=== PATIENT | male | born 1970 | race Caucasian/White ===

== ENCOUNTER 2021-04-13 21:15 | Inpatient (IN) | payer SELFPAY ==
--- NOTE | 2021-04-13 21:35 | EDM.PDOC ---
ED HPI GENERAL MEDICAL PROBLEM - General Stated Complaint: HEART PAIN, MAYBE HEART ATTACK Time Seen by Provider: 04/13/21 21:15 Source of Information: Reports: Patient History Limitations: Reports: No Limitations - History of Present Illness INITIAL COMMENTS - FREE TEXT/NARRATIVE: ED with anterior chest pain x 1 hour [employer], started when sitting watching TV, Remote hx 5 vessel bypass. On no current medications, does not follow with PCP Tried some packet powder of pain reliever [employer] but does not know mg or if acetaminophen or aspirin type product. Intermittent heartburn uses OTC pepcid or tums. No nausea vomiting or breathing difficulty. Rates pain 4/10 radiates down both arms to elbows. Had been on cholesterol and blood pressure medications after bypass surgery but couldn't afford them so quit. , Continues tobacco use 1/4 pack per day. Chest Pain Score (Numeric/FACES): 4 - Related Data Allergies Allergy/AdvReac Type Severity Reaction Status Date / Time No Known Allergies Allergy Verified 04/13/21 22:04 Home Meds: Home Meds . [No Known Home Meds] 02/11/18 [History] Past Medical History HEENT History: Reports: None Cardiovascular History: Reports: Hypertension, [place] Respiratory History: Reports: None Gastrointestinal History: Reports: None Genitourinary History: Reports: Prostate Disorder Neurological History: Reports: Migraines Other Neuro History: trigeminal myalgia Psychiatric History: Reports: None Endocrine/Metabolic History: Reports: Diabetes, Type II Dermatologic History: Reports: None - Infectious Disease History Infectious Disease History: Reports: Chicken Pox, Influenza - Past Surgical History Cardiovascular Surgical History: Reports: Coronary Artery Bypass Musculoskeletal Surgical History: Reports: Arthroscopic Knee, Shoulder Surgery Social & Family History - Family History HEENT: Reports: Impaired Vision Cardiac: Reports: High Cholesterol, Hypertension Respiratory: Reports: Asthma OBGYN: Reports: Endocrine/Metabolic: Reports: Diabetes, type II Oncologic: Reports: Colon, Lung - Caffeine Use Caffeine Use: Reports: Coffee Caffeine Use Comment: quit energy drinks after his heart problem ED ROS GENERAL - Review of Systems Review Of Systems: Comprehensive ROS is negative, except as noted in HPI. ED EXAM, GENERAL - Physical Exam Exam: See Below Exam Limited By: No Limitations General Appearance: Alert, Anxious, Mild Distress Eye Exam: Bilateral Eye: EOMI Ears: Normal External Exam Nose: Normal Inspection Throat/Mouth: Normal Inspection Head: Atraumatic, Normocephalic Neck: Normal Inspection Respiratory/Chest: No Respiratory Distress, Lungs Clear, Normal Breath Sounds, Chest Non-Tender Cardiovascular: Normal Peripheral Pulses, Regular Rate, Rhythm GI/Abdominal: Normal Bowel Sounds, Soft Extremities: Normal Inspection, Normal Range of Motion. No: Pedal Edema Neurological: Alert, Oriented, Normal Cognition Psychiatric: Normal Affect, Anxious Skin Exam: Warm, Dry, Intact, Normal Color #1 Interpretation EKG Date: 04/13/21 Time: 21:22 Rhythm: Other (sinus tachycardia) Rate (Beats/Min): 113 P-Wave: Present QRS: Wide ST-T: Depressed (diffuse leads) Comparison: No Change (PRIOR EKG 2014) #2 Interpretation EKG Date: 04/13/21 Time: 23:29 Rhythm: NSR Rate (Beats/Min): 90 Comparison: Change From Previous EKG EKG Interpretation Comments: improvement in ST depression, Course - Vital Signs Last Recorded V/S: Last Vital Signs Temp 98.0 F 04/14/21 12:00 Pulse 89 04/14/21 12:00 Resp 20 04/14/21 12:00 BP 128/97 H 04/14/21 12:00 Pulse Ox 93 L 04/14/21 12:00 - Orders/Labs/Meds Labs: Laboratory Tests 04/13/21 04/13/21 04/13/21 Range/Units 21:25 21:25 21:25 WBC 13.2 H (5.0-10.0) 10^3/uL RBC 4.98 (4.6-6.2) 10^6/uL Hgb 15.5 (14.0-18.0) g/dL Hct 45.3 (40.0-54.0) % MCV 91.0 (80-100) fL MCH 31.1 (27.0-34.0) pg MCHC 34.2 (33.0-35.0) g/dL Plt Count 297 (150-450) 10^3/uL Neut % (Auto) 58.1 (42.2-75.2) % Lymph % (Auto) 32.0 (20.5-50.1) % [place] % (Auto) 6.6 (2-8) % Eos % (Auto) 2.8 (1.0-3.0) % Baso % (Auto) 0.5 (0.0-1.0) % PT 10.3 (9.0-12.0) SEC INR 1.0 (0.9-1.2) D-Dimer, Quantitative 289 (0-400) ng/mL Sodium 139 (136-145) mmol/L Potassium 3.8 (3.5-5.1) mmol/L Chloride 101 (98-107) mmol/L Carbon Dioxide 28 (21-32) mmol/L Anion Gap 13.8 H (7-13) mEq/L BUN 22 H (7-18) mg/dL Creatinine 1.54 H (0.70-1.30) mg/dL Est Cr Clr Drug Dosing TNP Estimated GFR (MDRD) 48 BUN/Creatinine Ratio 14.3 (No establ ref range) Glucose 189 H (70-99) mg/dL Calcium 9.2 (8.5-10.1) mg/dL Magnesium 2.0 (1.8-2.4) mg/dL Total Bilirubin 0.2 (0.2-1.0) mg/dL AST 18 (15-37) U/L ALT 34 (16-63) U/L Alkaline Phosphatase 98 (46-116) U/L Troponin I High Sens 62 (<=76) pg/mL B-Natriuretic Peptide 12 (0-100) pg/ml Total Protein 7.2 (6.4-8.2) g/dL Albumin 3.8 (3.4-5.0) g/dL Globulin 3.4 Albumin/Globulin Ratio 1.1 Amylase 55 (25-115) U/L Urine Color (YELLOW) Urine Appearance (CLEAR) Urine pH (5.0-9.0) Ur Specific [place] (1.005-1.030) Urine Protein (NEGATIVE) Urine Glucose (UA) (NEGATIVE) Urine Ketones (NEGATIVE) Urine Occult Blood (NEGATIVE) Urine Nitrite (NEGATIVE) Urine Bilirubin (NEGATIVE) Urine Urobilinogen (0.2-1.0) mg/dL Ur Leukocyte Esterase (NEGATIVE) Urine RBC (0-5) /HPF Urine WBC (0-5/HPF) /HPF Ur Epithelial Cells (NOT SEEN) /HPF Urine Bacteria (0-FEW/HPF) /HPF 04/13/21 04/13/21 Range/Units 23:06 23:30 WBC (5.0-10.0) 10^3/uL RBC (4.6-6.2) 10^6/uL Hgb (14.0-18.0) g/dL Hct (40.0-54.0) % MCV (80-100) fL MCH (27.0-34.0) pg MCHC (33.0-35.0) g/dL Plt Count (150-450) 10^3/uL Neut % (Auto) (42.2-75.2) % Lymph % (Auto) (20.5-50.1) % [place] % (Auto) (2-8) % Eos % (Auto) (1.0-3.0) % Baso % (Auto) (0.0-1.0) % PT (9.0-12.0) SEC INR (0.9-1.2) D-Dimer, Quantitative (0-400) ng/mL Sodium (136-145) mmol/L Potassium (3.5-5.1) mmol/L Chloride (98-107) mmol/L Carbon Dioxide (21-32) mmol/L Anion Gap (7-13) mEq/L BUN (7-18) mg/dL Creatinine (0.70-1.30) mg/dL Est Cr Clr Drug Dosing Estimated GFR (MDRD) BUN/Creatinine Ratio (No establ ref range) Glucose (70-99) mg/dL Calcium (8.5-10.1) mg/dL Magnesium (1.8-2.4) mg/dL Total Bilirubin (0.2-1.0) mg/dL AST (15-37) U/L ALT (16-63) U/L Alkaline Phosphatase (46-116) U/L Troponin I High Sens 177 H* (<=76) pg/mL B-Natriuretic Peptide (0-100) pg/ml Total Protein (6.4-8.2) g/dL Albumin (3.4-5.0) g/dL Globulin Albumin/Globulin Ratio Amylase (25-115) U/L Urine Color Yellow (YELLOW) Urine Appearance Clear (CLEAR) Urine pH 6.5 (5.0-9.0) Ur Specific [place] >= 1.030 (1.005-1.030) Urine Protein Negative (NEGATIVE) Urine Glucose (UA) Negative (NEGATIVE) Urine Ketones Trace H (NEGATIVE) Urine Occult Blood Trace-intact H (NEGATIVE) Urine Nitrite Negative (NEGATIVE) Urine Bilirubin Negative (NEGATIVE) Urine Urobilinogen 0.2 (0.2-1.0) mg/dL Ur Leukocyte Esterase Negative (NEGATIVE) Urine RBC 0-5 (0-5) /HPF Urine WBC 0-5 (0-5/HPF) /HPF Ur Epithelial Cells Many H (NOT SEEN) /HPF Urine Bacteria Many H (0-FEW/HPF) /HPF Meds: Medications Discontinued Medications Generic Name Dose Route Start Last Admin Trade Name Freq PRN Reason Stop Dose Admin Acetaminophen 650 mg 04/14/21 02:19 04/14/21 02:37 Acetaminophen 325 Mg Tab PO 650 mg Q4H PRN Administration Pain Aspirin 324 mg 04/13/21 21:18 04/13/21 21:36 Aspirin 81 Mg Tab.Chew PO 04/13/21 21:19 324 mg ONETIME ONE Administration Atorvastatin Calcium 80 mg 04/14/21 00:22 04/14/21 00:31 Atorvastatin 20 Mg Tab PO 04/14/21 00:23 80 mg ONETIME ONE Administration Heparin Sodium (Porcine) 4,000 units 04/14/21 00:05 04/14/21 00:15 Heparin Sodium 5,000 Units/Ml Vial IVPUSH 04/14/21 00:06 4,000 units .BOLUS ONE Administration Heparin Sodium (Porcine) 2,000 units 04/14/21 08:07 04/14/21 08:18 Heparin Sodium 5,000 Units/Ml Vial IVPUSH 04/14/21 08:08 2,000 units .BOLUS ONE Administration Nitroglycerin/Dextrose 25 mg in 250 mls @ 6 mls/hr 04/13/21 21:45 04/13/21 21:46 Nitroglycerin 25 Mg/D5w 250 Ml IV 5 mcg/min TITRATE KEMAR 3 mls/hr Administration Protocol 10 MCG/MIN Heparin Sodium/Sodium Chloride 25,000 units in 500 mls @ 20.14 mls/hr 04/14/21 00:15 04/14/21 08:19 Heparin 25,000 Units In 1/2 Ns 500 Ml IV 15.91 units/kg/hr TITRATE KEMAR 26.7 mls/hr Titration Protocol 12 UNITS/KG/HR Metoprolol Tartrate 25 mg 04/14/21 00:22 04/14/21 00:34 Metoprolol Tartrate 25 Mg Tab PO 04/14/21 00:23 25 mg ONETIME ONE Administration Nitroglycerin 0.4 mg 04/13/21 21:18 04/13/21 21:36 Nitroglycerin 0.4 Mg Tab.Sl SL 04/14/21 21:18 0.4 mg Q5M PRN Administration Chest Pain Sodium Chloride 10 ml 04/13/21 21:18 04/13/21 21:37 Sodium Chloride 0.9% 10 Ml Syringe FLUSH 10 ml ASDIRECTED PRN Administration Keep Vein Open Departure - Departure Time of Disposition: 01:00 Disposition: Admitted As Inpatient 66 Reason for Transfer *Q: Other Condition: Good Clinical Impression: Elevated troponin Hypertension Qualifiers: Hypertension type: unspecified Qualified Code(s): I10 - Essential (primary) hypertension Chest pain Qualifiers: Chest pain type: unspecified Qualified Code(s): R07.9 - Chest pain, unspecified
[2021-04-13] MEDS: Nitroglycerin 0.4 MG Tab.SL SL PRN (21:36)
[2021-04-13] MEDS: Aspirin 81 MG Tab.Chew PO ONE (21:36)
[2021-04-13] MEDS: Sodium Chloride 0.9% 10 ML Syringe FLUSH PRN (21:37)
[2021-04-13] MEDS: Nitroglycerin/D5W 25 MG/250 ML BOTTLE IV SCH (21:46)
[2021-04-13 21:57] LABS: ANION GAP 13.8 mEq/L (7-13); CHLORIDE,CL 101 mmol/L (98-107); SODIUM,NA 139 mmol/L (136-145)
--- NOTE | 2021-04-13 22:02 | CR ---
PROCEDURE INFORMATION: Exam: XR Chest Exam date and time: 04/13/2021 9:34 PM Age: 51 years old Clinical indication: Other: Chest pain TECHNIQUE: Imaging protocol: XR of the chest. Views: 1 view. COMPARISON: No relevant prior studies available. FINDINGS: Lungs: Unremarkable. No consolidation. Pleural spaces: Unremarkable. No pleural effusion. No pneumothorax. Heart/Mediastinum: Unremarkable. No cardiomegaly. Bones/joints: Status post median sternotomy. IMPRESSION: There are no acute chest findings.
[2021-04-14] MEDS: Heparin Sodium/0.45% NaCl 25,000 UNITS/500 ML BAG IV SCH (00:15)
[2021-04-14] MEDS: Heparin Sodium 5,000 Units/ML Vial IVPUSH ONE ×2 (00:15→08:18)
[2021-04-14] MEDS: atorvaSTATin 20 MG Tab PO ONE (00:31)
[2021-04-14] MEDS: Metoprolol Tartrate 25 MG Tab PO ONE (00:34)
[2021-04-14] MEDS: Acetaminophen 325 MG Tab PO PRN (02:37)
--- NOTE | 2021-04-14 06:02 | PCM.HP ---
H&P History of Present Illness - General Date of Service: 04/14/21 Admit Problem/Dx: Admission Diagnosis/Problem Admission Diagnosis/Problem NSTEMI, initial episode of care Source of Information: Patient, EMS, EMS Notes Reviewed History Limitations: Reports: No Limitations - History of Present Illness Other HPI/Comments: Patient is a 51-year-old male with a past medical history of CABG x5, tobacco abuse, hypertension, hyperlipidemia who presented with what he describes several hours of substernal chest discomfort with radiation to his bilateral arms. Patient states that the pain occurred spontaneously when he was sitting watching TV on the evening of 04-13-21. Patient states that he got up and walked outside to try to suppress air but the pain did not relent. He had some associated diaphoresis and shortness of breath. Patient was brought to the emergency department where he was found to have mild diffuse ST segment depressions not significantly changed from prior EKG. Initial high sensitive troponin of 62 with a repeat of 177. Patient was given aspirin, metoprolol, statin, heparin drip was initiated patient was admitted for further evaluation and monitoring for likely NSTEMI. Overall patient states that he not taking any prescription medications due to cost issues. He states that it has been a presently 10 years since his bypass surgery. He he states that he has history of diabetes but is not been taking any medications for this. Also states he has history of high cholesterol and around [id number] smoking history. Chest Pain Score (Numeric/FACES): 4 - Related Data Allergies/Adverse Reactions: Allergies Allergy/AdvReac Type Severity Reaction Status Date / Time No Known Allergies Allergy Verified 04/13/21 22:04 Home Medications: Home Meds . [No Known Home Meds] 02/11/18 [History] Past Medical History HEENT History: Reports: None Cardiovascular History: Reports: Hypertension, [place] Respiratory History: Reports: None Gastrointestinal History: Reports: None Genitourinary History: Reports: Prostate Disorder Neurological History: Reports: Migraines, Other (See Below) Other Neuro History: trigeminal neuralgia Psychiatric History: Reports: None Endocrine/Metabolic History: Reports: Diabetes, Type II Dermatologic History: Reports: None - Infectious Disease History Infectious Disease History: Reports: Chicken Pox, Influenza - Past Surgical History Cardiovascular Surgical History: Reports: Coronary Artery Bypass Other Cardiovascular Surgeries/Procedures: bypass x 5 Musculoskeletal Surgical History: Reports: Arthroscopic Knee, Shoulder Surgery Social & Family History - Family History Family Medical History: No Pertinent Family History HEENT: Reports: Impaired Vision Cardiac: Reports: High Cholesterol, Hypertension Respiratory: Reports: Asthma OBGYN: Reports: Endocrine/Metabolic: Reports: Diabetes, type II Oncologic: Reports: Colon, Lung - Tobacco Use Tobacco Use Status *Q: Current Every Day Tobacco User Years of Tobacco use: 35 Packs/Tins Daily: 1 Used Tobacco, but Quit: No Second Hand Smoke Exposure: No - Caffeine Use Caffeine Use: Reports: Coffee, Soda Caffeine Use Comment: quit energy drinks after his heart problem - Alcohol Use Days Per Week of Alcohol Use: 7 Number of Drinks Per Day: 1 Total Drinks Per Week: 7 Date of Last Drink: 04/13/21 Time of Last Drink: 21:00 - Recreational Drug Use Recreational Drug Use: No H&P Review of Systems - Review of Systems: Review Of Systems: Comprehensive ROS is negative, except as noted in HPI. Exam - Exam Exam: See Below - Vital Signs Vital Signs: Last Vital Signs Temp 97.8 F 04/14/21 04:00 Pulse 83 04/14/21 04:00 Resp 14 04/14/21 04:00 BP 112/92 H 04/14/21 04:00 Pulse Ox 97 04/14/21 04:00 Weight: 189 lb 3.2 oz - Exam General: Alert, Oriented, 4 HEENT: PERRLA, Hearing Intact, Mucosa Moist & [place], Nares Patent, Normal Nasal Septum, Posterior Pharynx Clear, Conjunctiva Clear, EOMI, EACs Clear, TMs Clear Neck: Supple, Trachea Midline, 2 Lungs: Clear to Auscultation, Normal Respiratory Effort Cardiovascular: Regular Rate, Regular Rhythm GI/Abdominal Exam: Normal Bowel Sounds, Soft, Non-Tender, No Organomegaly, No Distention, No Abnormal Bruit, No Mass, Pelvis Stable Back Exam: Normal Inspection, Full Range of Motion, NT Extremities: Normal Inspection, Normal Range of Motion, Non-Tender, No Pedal Edema, Normal Capillary Refill Skin: Warm, Dry, Intact Neurological: Cranial Nerves Intact, Reflexes Equal Bilateral Neuro Extensive - Mental Status: Alert, Oriented x3, Normal Mood/Affect, Normal Cognition Neuro Extensive - Motor, Sensory, Reflexes: CN II-XII Intact, Normal Gait, Normal Reflexes Psychiatric: Alert, Normal Affect, Normal Mood - Patient Data Lab Results Last 24 hrs: Laboratory Results - last 24 hr 04/13/21 04/13/21 04/13/21 Range/Units 21:25 21:25 21:25 WBC 13.2 H (5.0-10.0) 10^3/uL RBC 4.98 (4.6-6.2) 10^6/uL Hgb 15.5 (14.0-18.0) g/dL Hct 45.3 (40.0-54.0) % MCV 91.0 (80-100) fL MCH 31.1 (27.0-34.0) pg MCHC 34.2 (33.0-35.0) g/dL Plt Count 297 (150-450) 10^3/uL Neut % (Auto) 58.1 (42.2-75.2) % Lymph % (Auto) 32.0 (20.5-50.1) % [place] % (Auto) 6.6 (2-8) % Eos % (Auto) 2.8 (1.0-3.0) % Baso % (Auto) 0.5 (0.0-1.0) % PT 10.3 (9.0-12.0) SEC INR 1.0 (0.9-1.2) D-Dimer, Quantitative 289 (0-400) ng/mL Sodium 139 (136-145) mmol/L Potassium 3.8 (3.5-5.1) mmol/L Chloride 101 (98-107) mmol/L Carbon Dioxide 28 (21-32) mmol/L Anion Gap 13.8 H (7-13) mEq/L BUN 22 H (7-18) mg/dL Creatinine 1.54 H (0.70-1.30) mg/dL Est Cr Clr Drug Dosing TNP Estimated GFR (MDRD) 48 BUN/Creatinine Ratio 14.3 (No establ ref range) Glucose 189 H (70-99) mg/dL Calcium 9.2 (8.5-10.1) mg/dL Magnesium 2.0 (1.8-2.4) mg/dL Total Bilirubin 0.2 (0.2-1.0) mg/dL AST 18 (15-37) U/L ALT 34 (16-63) U/L Alkaline Phosphatase 98 (46-116) U/L Troponin I High Sens 62 (<=76) pg/mL B-Natriuretic Peptide 12 (0-100) pg/ml Total Protein 7.2 (6.4-8.2) g/dL Albumin 3.8 (3.4-5.0) g/dL Globulin 3.4 Albumin/Globulin Ratio 1.1 Amylase 55 (25-115) U/L Urine Color (YELLOW) Urine Appearance (CLEAR) Urine pH (5.0-9.0) Ur Specific [place] (1.005-1.030) Urine Protein (NEGATIVE) Urine Glucose (UA) (NEGATIVE) Urine Ketones (NEGATIVE) Urine Occult Blood (NEGATIVE) Urine Nitrite (NEGATIVE) Urine Bilirubin (NEGATIVE) Urine Urobilinogen (0.2-1.0) mg/dL Ur Leukocyte Esterase (NEGATIVE) Urine RBC (0-5) /HPF Urine WBC (0-5/HPF) /HPF Ur Epithelial Cells (NOT SEEN) /HPF Urine Bacteria (0-FEW/HPF) /HPF SARS CoV-2 RNA Rapid DANYA (NEGATIVE) 04/13/21 04/13/21 04/14/21 Range/Units 23:06 23:30 00:34 WBC (5.0-10.0) 10^3/uL RBC (4.6-6.2) 10^6/uL Hgb (14.0-18.0) g/dL Hct (40.0-54.0) % MCV (80-100) fL MCH (27.0-34.0) pg MCHC (33.0-35.0) g/dL Plt Count (150-450) 10^3/uL Neut % (Auto) (42.2-75.2) % Lymph % (Auto) (20.5-50.1) % [place] % (Auto) (2-8) % Eos % (Auto) (1.0-3.0) % Baso % (Auto) (0.0-1.0) % PT (9.0-12.0) SEC INR (0.9-1.2) D-Dimer, Quantitative (0-400) ng/mL Sodium (136-145) mmol/L Potassium (3.5-5.1) mmol/L Chloride (98-107) mmol/L Carbon Dioxide (21-32) mmol/L Anion Gap (7-13) mEq/L BUN (7-18) mg/dL Creatinine (0.70-1.30) mg/dL Est Cr Clr Drug Dosing Estimated GFR (MDRD) BUN/Creatinine Ratio (No establ ref range) Glucose (70-99) mg/dL Calcium (8.5-10.1) mg/dL Magnesium (1.8-2.4) mg/dL Total Bilirubin (0.2-1.0) mg/dL AST (15-37) U/L ALT (16-63) U/L Alkaline Phosphatase (46-116) U/L Troponin I High Sens 177 H* (<=76) pg/mL B-Natriuretic Peptide (0-100) pg/ml Total Protein (6.4-8.2) g/dL Albumin (3.4-5.0) g/dL Globulin Albumin/Globulin Ratio Amylase (25-115) U/L Urine Color Yellow (YELLOW) Urine Appearance Clear (CLEAR) Urine pH 6.5 (5.0-9.0) Ur Specific [place] >= 1.030 (1.005-1.030) Urine Protein Negative (NEGATIVE) Urine Glucose (UA) Negative (NEGATIVE) Urine Ketones Trace H (NEGATIVE) Urine Occult Blood Trace-intact H (NEGATIVE) Urine Nitrite Negative (NEGATIVE) Urine Bilirubin Negative (NEGATIVE) Urine Urobilinogen 0.2 (0.2-1.0) mg/dL Ur Leukocyte Esterase Negative (NEGATIVE) Urine RBC 0-5 (0-5) /HPF Urine WBC 0-5 (0-5/HPF) /HPF Ur Epithelial Cells Many H (NOT SEEN) /HPF Urine Bacteria Many H (0-FEW/HPF) /HPF SARS CoV-2 RNA Rapid DANYA Negative (NEGATIVE) Result Diagrams: 04/13/21 21:25 04/13/21 21:25 Problem List Initiated/Reviewed/Updated: Yes Orders Last 24hrs: Active Orders 24 hr Category Date Time Status Admission Diagnosis [ADT] Stat ADT 04/14/21 00:24 Ordered Admission Status [Patient Status] [ADT] Routine ADT 04/14/21 00:24 Active Cardiac Monitoring [RC] 08,20 Care 04/13/21 21:18 Active Peripheral IV Care [RC] . DIRECTED Care 04/13/21 21:19 Active Consistent Carbohydrate Diet [DIET] Diet 04/14/21 Breakfast Active aPTT [PTT,PARTIAL THROMBOPLSTIN TIME] [COAG] Routine Lab 04/14/21 06:15 Ordered Acetaminophen [TylenoL] Med 04/14/21 02:19 Active 650 mg PO Q4H PRN Heparin Sodium/0.45% NaCl [Heparin 25,000 Units in 1/2 Med 04/14/21 00:15 Active NS 500 ML] 25,000 units in 500 ml IV TITRATE Nitroglycerin [Nitrostat] Med 04/13/21 21:18 Active 0.4 mg SL Q5M PRN Sodium Chloride 0.9% [Saline Flush] Med 04/13/21 21:18 Active 10 ml FLUSH ASDIRECTED PRN Peripheral IV Insertion Adult [OM.PC] Stat Oth 04/13/21 21:18 Ordered Medication Orders Acetaminophen (Acetaminophen 325 Mg Tab) 650 mg PO Q4H PRN PRN Reason: Pain Last Admin: 04/14/21 02:37 Dose: 650 mg Documented by: SAW Heparin Sodium/Sodium Chloride (Heparin 25,000 Units In 1/2 Ns 500 Ml) 25,000 units in 500 mls @ 20.14 mls/hr IV TITRATE KEMAR; Protocol Last Admin: 04/14/21 00:15 Dose: 11.92 units/kg/hr, 20 mls/hr Documented by: BRAXTON Cosigned by: MACY Nitroglycerin (Nitroglycerin 0.4 Mg Tab.Sl) 0.4 mg SL Q5M PRN PRN Reason: Chest Pain Stop: 04/14/21 21:18 Last Admin: 04/13/21 21:36 Dose: 0.4 mg Documented by: MACY Sodium Chloride (Sodium Chloride 0.9% 10 Ml Syringe) 10 ml FLUSH ASDIRECTED PRN PRN Reason: Keep Vein Open Last Admin: 04/13/21 21:37 Dose: 10 ml Documented by: MACY Assessment/Plan Comment:: NSTEMI/ACS EKG with no evidence of ST segment elevation, patient's chest pain has improved. Troponin increased from 62-177. Continue to trend troponin, continue heparin drip, continue nitro drip as needed, will continue metoprolol tartrate 25 mg p.o. twice daily, will ensure p atient is started on high intensity statin, will consult cardiology and discuss transfer to outside facility for possible invasive angiography. We will hold off on lisinopril given patient's mildly elevated creatinine. History of type 2 diabetes mellitus Most recent A1c 7.0, patient denies taking any prescription medications. Carb controlled diet, twice daily glucose checks. Hyperlipidemia Continue statin Fluidsnone Dietcarb controlled DVT prophylaxisheparin
--- NOTE | 2021-04-14 11:04 | PCM.DCSUM1 ---
Discharge Summary - Hospital Course Free Text/Narrative:: Patient is a 51-year-old male with a past medical history of CABG x5, tobacco abuse, hypertension, hyperlipidemia who presented with what he describes several hours of substernal chest discomfort with radiation to his bilateral arms. Patient states that the pain occurred spontaneously when he was sitting watching TV on the evening of 04-13-21. Patient states that he got up and walked outside to try to suppress air but the pain did not relent. He had some associated diaphoresis and shortness of breath. Patient was brought to the emergency department where he was found to have mild diffuse ST segment depressions not significantly changed from prior EKG. Initial high sensitive troponin of 62 with a repeat of 177. Patient was given aspirin, metoprolol, statin, heparin drip was initiated patient was admitted for further evaluation and monitoring fo r likely NSTEMI. Overall patient states that he not taking any prescription medications due to cost issues. He states that it has been a presently 10 years since his bypass surgery. He he states that he has history of diabetes but is not been taking any medications for this. Also states he has history of high cholesterol and around [id number] smoking history. Patient was admitted for further monitoring. Patient was placed on heparin drip, given aspirin 324 mg, metoprolol tartrate 25 mg, nitroglycerin initially as a continuous infusion which was discontinued with resolution of chest comfort. Patient improvement in his chest discomfort with heparin drip and nitroglycerin. High-sensitivity troponin increased from 60-177. Given patient's classical symptoms, elevated troponin, and history of coronary artery bypass grafting x5 and significant risk factors concerned that patient has acute coronary syndrome. Consultation was made to outside facility and they accepted for transfer for ca rdiology consultation and consideration of possible coronary angiogram. Patient was hemodynamically stable during his hospital stay and was hemodynamically stable at discharge. Diagnosis: Stroke: No - Discharge Data Discharge Date: 04/14/21 Discharge Disposition: DC/Tfer to Acute Hospital 02 Condition: Good - Referral to Home Health Primary Care Physician: PCP None - Discharge Diagnosis/Problem(s) (1) Acute coronary syndrome SNOMED Code(s): 326835992 ICD Code: I24.9 - ACUTE ISCHEMIC HEART DISEASE, UNSPECIFIED Status: Acute Current Visit: No (2) Chest pain SNOMED Code(s): 79677811 ICD Code: R07.9 - CHEST PAIN, UNSPECIFIED Status: Acute Current Visit: No - Patient Instructions Diet: NPO - Discharge Plan *PRESCRIPTION DRUG MONITORING PROGRAM REVIEWED*: No *COPY OF PRESCRIPTION DRUG MONITORING REPORT IN PATIENT KERI: Not Applicable Tobacco Cessation Medication: Prescription Refused Home Medications: Home Meds . [No Known Home Meds] 02/11/18 [History] Patient Handouts: Acute Coronary Syndrome Forms: ED Department Discharge - Discharge Summary/Plan Comment DC Time >30 min.: Yes Total # of Minutes for Discharge Time: 30 minutes - Patient Data Vitals - Most Recent: Last Vital Signs Temp 97.7 F 04/14/21 08:00 Pulse 85 04/14/21 08:00 Resp 20 04/14/21 08:00 BP 118/76 04/14/21 08:00 Pulse Ox 95 04/14/21 08:00 Weight - Most Recent: 189 lb 3.2 oz I&O - Last 24 hours: Intake & Output 04/13/21 04/14/21 04/14/21 22:59 06:59 14:59 Intake Total 100 325 Balance 100 325 Lab Results - Last 24 hrs: Laboratory Results - last 24 hr 04/13/21 04/13/21 04/13/21 Range/Units 21:25 21:25 21:25 WBC 13.2 H (5.0-10.0) 10^3/uL RBC 4.98 (4.6-6.2) 10^6/uL Hgb 15.5 (14.0-18.0) g/dL Hct 45.3 (40.0-54.0) % MCV 91.0 (80-100) fL MCH 31.1 (27.0-34.0) pg MCHC 34.2 (33.0-35.0) g/dL Plt Count 297 (150-450) 10^3/uL Neut % (Auto) 58.1 (42.2-75.2) % Lymph % (Auto) 32.0 (20.5-50.1) % [place] % (Auto) 6.6 (2-8) % Eos % (Auto) 2.8 (1.0-3.0) % Baso % (Auto) 0.5 (0.0-1.0) % PT 10.3 (9.0-12.0) SEC INR 1.0 (0.9-1.2) APTT (22.0-34.0) SEC D-Dimer, Quantitative 289 (0-400) ng/mL Sodium 139 (136-145) mmol/L Potassium 3.8 (3.5-5.1) mmol/L Chloride 101 (98-107) mmol/L Carbon Dioxide 28 (21-32) mmol/L Anion Gap 13.8 H (7-13) mEq/L BUN 22 H (7-18) mg/dL Creatinine 1.54 H (0.70-1.30) mg/dL Est Cr Clr Drug Dosing TNP Estimated GFR (MDRD) 48 BUN/Creatinine Ratio 14.3 (No establ ref range) Glucose 189 H (70-99) mg/dL Calcium 9.2 (8.5-10.1) mg/dL Magnesium 2.0 (1.8-2.4) mg/dL Total Bilirubin 0.2 (0.2-1.0) mg/dL AST 18 (15-37) U/L ALT 34 (16-63) U/L Alkaline Phosphatase 98 (46-116) U/L Troponin I High Sens 62 (<=76) pg/mL B-Natriuretic Peptide 12 (0-100) pg/ml Total Protein 7.2 (6.4-8.2) g/dL Albumin 3.8 (3.4-5.0) g/dL Globulin 3.4 Albumin/Globulin Ratio 1.1 Amylase 55 (25-115) U/L Urine Color (YELLOW) Urine Appearance (CLEAR) Urine pH (5.0-9.0) Ur Specific [place] (1.005-1.030) Urine Protein (NEGATIVE) Urine Glucose (UA) (NEGATIVE) Urine Ketones (NEGATIVE) Urine Occult Blood (NEGATIVE) Urine Nitrite (NEGATIVE) Urine Bilirubin (NEGATIVE) Urine Urobilinogen (0.2-1.0) mg/dL Ur Leukocyte Esterase (NEGATIVE) Urine RBC (0-5) /HPF Urine WBC (0-5/HPF) /HPF Ur Epithelial Cells (NOT SEEN) /HPF Urine Bacteria (0-FEW/HPF) /HPF SARS CoV-2 RNA Rapid DANYA (NEGATIVE) 04/13/21 04/13/21 04/14/21 Range/Units 23:06 23:30 00:34 WBC (5.0-10.0) 10^3/uL RBC (4.6-6.2) 10^6/uL Hgb (14.0-18.0) g/dL Hct (40.0-54.0) % MCV (80-100) fL MCH (27.0-34.0) pg MCHC (33.0-35.0) g/dL Plt Count (150-450) 10^3/uL Neut % (Auto) (42.2-75.2) % Lymph % (Auto) (20.5-50.1) % [place] % (Auto) (2-8) % Eos % (Auto) (1.0-3.0) % Baso % (Auto) (0.0-1.0) % PT (9.0-12.0) SEC INR (0.9-1.2) APTT (22.0-34.0) SEC D-Dimer, Quantitative (0-400) ng/mL Sodium (136-145) mmol/L Potassium (3.5-5.1) mmol/L Chloride (98-107) mmol/L Carbon Dioxide (21-32) mmol/L Anion Gap (7-13) mEq/L BUN (7-18) mg/dL Creatinine (0.70-1.30) mg/dL Est Cr Clr Drug Dosing Estimated GFR (MDRD) BUN/Creatinine Ratio (No establ ref range) Glucose (70-99) mg/dL Calcium (8.5-10.1) mg/dL Magnesium (1.8-2.4) mg/dL Total Bilirubin (0.2-1.0) mg/dL AST (15-37) U/L ALT (16-63) U/L Alkaline Phosphatase (46-116) U/L Troponin I High Sens 177 H* (<=76) pg/mL B-Natriuretic Peptide (0-100) pg/ml Total Protein (6.4-8.2) g/dL Albumin (3.4-5.0) g/dL Globulin Albumin/Globulin Ratio Amylase (25-115) U/L Urine Color Yellow (YELLOW) Urine Appearance Clear (CLEAR) Urine pH 6.5 (5.0-9.0) Ur Specific [place] >= 1.030 (1.005-1.030) Urine Protein Negative (NEGATIVE) Urine Glucose (UA) Negative (NEGATIVE) Urine Ketones Trace H (NEGATIVE) Urine Occult Blood Trace-intact H (NEGATIVE) Urine Nitrite Negative (NEGATIVE) Urine Bilirubin Negative (NEGATIVE) Urine Urobilinogen 0.2 (0.2-1.0) mg/dL Ur Leukocyte Esterase Negative (NEGATIVE) Urine RBC 0-5 (0-5) /HPF Urine WBC 0-5 (0-5/HPF) /HPF Ur Epithelial Cells Many H (NOT SEEN) /HPF Urine Bacteria Many H (0-FEW/HPF) /HPF SARS CoV-2 RNA Rapid DANYA Negative (NEGATIVE) 04/14/21 Range/Units 06:10 WBC (5.0-10.0) 10^3/uL RBC (4.6-6.2) 10^6/uL Hgb (14.0-18.0) g/dL Hct (40.0-54.0) % MCV (80-100) fL MCH (27.0-34.0) pg MCHC (33.0-35.0) g/dL Plt Count (150-450) 10^3/uL Neut % (Auto) (42.2-75.2) % Lymph % (Auto) (20.5-50.1) % [place] % (Auto) (2-8) % Eos % (Auto) (1.0-3.0) % Baso % (Auto) (0.0-1.0) % PT (9.0-12.0) SEC INR (0.9-1.2) APTT 26.4 (22.0-34.0) SEC D-Dimer, Quantitative (0-400) ng/mL Sodium (136-145) mmol/L Potassium (3.5-5.1) mmol/L Chloride (98-107) mmol/L Carbon Dioxide (21-32) mmol/L Anion Gap (7-13) mEq/L BUN (7-18) mg/dL Creatinine (0.70-1.30) mg/dL Est Cr Clr Drug Dosing Estimated GFR (MDRD) BUN/Creatinine Ratio (No establ ref range) Glucose (70-99) mg/dL Calcium (8.5-10.1) mg/dL Magnesium (1.8-2.4) mg/dL Total Bilirubin (0.2-1.0) mg/dL AST (15-37) U/L ALT (16-63) U/L Alkaline Phosphatase (46-116) U/L Troponin I High Sens (<=76) pg/mL B-Natriuretic Peptide (0-100) pg/ml Total Protein (6.4-8.2) g/dL Albumin (3.4-5.0) g/dL Globulin Albumin/Globulin Ratio Amylase (25-115) U/L Urine Color (YELLOW) Urine Appearance (CLEAR) Urine pH (5.0-9.0) Ur Specific [place] (1.005-1.030) Urine Protein (NEGATIVE) Urine Glucose (UA) (NEGATIVE) Urine Ketones (NEGATIVE) Urine Occult Blood (NEGATIVE) Urine Nitrite (NEGATIVE) Urine Bilirubin (NEGATIVE) Urine Urobilinogen (0.2-1.0) mg/dL Ur Leukocyte Esterase (NEGATIVE) Urine RBC (0-5) /HPF Urine WBC (0-5/HPF) /HPF Ur Epithelial Cells (NOT SEEN) /HPF Urine Bacteria (0-FEW/HPF) /HPF SARS CoV-2 RNA Rapid DANYA (NEGATIVE) Med Orders - Current: Current Medications Acetaminophen (Acetaminophen 325 Mg Tab) 650 mg PO Q4H PRN PRN Reason: Pain Last Admin: 04/14/21 02:37 Dose: 650 mg Documented by: Heparin Sodium/Sodium Chloride (Heparin 25,000 Units In 1/2 Ns 500 Ml) 25,000 units in 500 mls @ 20.14 mls/hr IV TITRATE KEMAR; Protocol Last Titration: 04/14/21 08:19 Dose: 15.91 units/kg/hr, 26.7 mls/hr Documented by: Nitroglycerin (Nitroglycerin 0.4 Mg Tab.Sl) 0.4 mg SL Q5M PRN PRN Reason: Chest Pain Stop: 04/14/21 21:18 Last Admin: 04/13/21 21:36 Dose: 0.4 mg Documented by: Sodium Chloride (Sodium Chloride 0.9% 10 Ml Syringe) 10 ml FLUSH ASDIRECTED PRN PRN Reason: Keep Vein Open Last Admin: 04/13/21 21:37 Dose: 10 ml Documented by: Discontinued Medications Aspirin (Aspirin 81 Mg Tab.Chew) 324 mg PO ONETIME ONE Stop: 04/13/21 21:19 Last Admin: 04/13/21 21:36 Dose: 324 mg Documented by: Atorvastatin Calcium (Atorvastatin 20 Mg Tab) 80 mg PO ONETIME ONE Stop: 04/14/21 00:23 Last Admin: 04/14/21 00:31 Dose: 80 mg Documented by: Heparin Sodium (Porcine) (Heparin Sodium 5,000 Units/Ml Vial) 4,000 units I VPUSH .BOLUS ONE Stop: 04/14/21 00:06 Last Admin: 04/14/21 00:15 Dose: 4,000 units Documented by: Heparin Sodium (Porcine) (Heparin Sodium 5,000 Units/Ml Vial) 2,000 units IVPUSH .BOLUS ONE Stop: 04/14/21 08:08 Last Admin: 04/14/21 08:18 Dose: 2,000 units Documented by: Nitroglycerin/Dextrose (Nitroglycerin 25 Mg/D5w 250 Ml) 25 mg in 250 mls @ 6 mls/hr IV TITRATE KEMAR; Protocol Last Admin: 04/13/21 21:46 Dose: 5 mcg/min, 3 mls/hr Documented by: Metoprolol Tartrate (Metoprolol Tartrate 25 Mg Tab) 25 mg PO ONETIME ONE Stop: 04/14/21 00:23 Last Admin: 04/14/21 00:34 Dose: 25 mg Documented by:
[2021-04-14 12:55] VITALS: BP 128/97; PULSE 89
== END 2021-04-14 12:20 | DRG 282 ==
LOC: DL.ED 21:15 → DL.MS 04-14 00:24
PROVIDERS: ADMIT Hospitalist; ATTEND Internal Medicine
DX: I21.4 Non-ST elevation (NSTEMI) myocardial infarction (principal); I24.9 Acute ischemic heart disease, unspecified; I10 Essential (primary) hypertension; E11.9 Type 2 diabetes mellitus without complications; I25.10 Atherosclerotic heart disease of native coronary artery without angina pectoris; E78.5 Hyperlipidemia, unspecified; Z20.822 Contact with and (suspected) exposure to COVID-19; F17.210 Nicotine dependence, cigarettes, uncomplicated; H54.7 Unspecified visual loss; I25.2 Old myocardial infarction; Z95.1 Presence of aortocoronary bypass graft
CPT/HCPCS: 36415; 71045; 80053; 81001; 82150; 83735; 83880; 84484; 85025; 85379; 85610; 85730; 93005; A9270-GY; J1644; J3490; U0002

== ENCOUNTER 2021-06-15 17:13 | Emergency (ER) | payer OTHER ==
[2021-06-15] MEDS ORDERED: Nitroglycerin 0.4 MG Tab.SL SL ONE (17:14)
[2021-06-15] MEDS ORDERED: Sodium Chloride 0.9% 10 ML Syringe FLUSH PRN (17:23)
--- NOTE | 2021-06-15 17:29 | EDM.PDOC ---
ED HPI GENERAL MEDICAL PROBLEM - General Chief Complaint: Chest Pain Stated Complaint: CHEST, PAIN Time Seen by Provider: 06/15/21 17:43 Source of Information: Reports: Patient History Limitations: Reports: No Limitations - History of Present Illness INITIAL COMMENTS - FREE TEXT/NARRATIVE: 51 y/o M c/o CP started around 415 pm as he was walking from his truck to the house. Tight in nature, 02/17, feels like the last tie he had an RI back in Apr. Associated bilateral arm pn. No nausea. [place] flush initially. Pt took his nitro and pn reduced from to a /. Is scheduled for Bypass surgery jun 27 at the [facility] in [place]. Denies fever, cough, chills, drugs, etoh, neck pn, lutz, vision prob, abd pn, trauma, extremity pn. Pt has been told by cardiology he only has one working vessel in his heart. pt smoked for 25-30 years but has quit in the last few months after he was diagnosed with heart disease. Chest Pain Score (Numeric/FACES): 1 - Related Data Allergies Allergy/AdvReac Type Severity Reaction Status Date / Time No Known Allergies Allergy Verified 06/15/21 17:32 Home Meds: Home Meds Aspirin [Aspirin EC] 81 mg PO DAILY 06/15/21 [History] Clopidogrel Bisulfate [Plavix] 75 mg PO DAILY 06/15/21 [History] Losartan/Hydrochlorothiazide [Hyzaar 100-25 Tablet] 1 tab PO DAILY 06/15/21 [History] Metoprolol Succinate 50 mg PO DAILY 06/15/21 [History] Nitroglycerin 0.4 mg SL ASDIRECTED 06/15/21 [History] Rosuvastatin Calcium 40 mg PO BEDTIME 06/15/21 [History] metFORMIN HCl [Metformin HCl ER] 500 mg PO BIDMEALS 06/15/21 [History] Past Medical History HEENT History: Reports: None Cardiovascular History: Reports: Hypertension, RI Respiratory History: Reports: None Gastrointestinal History: Reports: None Genitourinary History: Reports: Prostate Disorder Neurological History: Reports: Migraines, Other (See Below) Other Neuro History: trigeminal neuralgia Psychiatric History: Reports: None Endocrine/Metabolic History: Reports: Diabetes, Type II Dermatologic History: Reports: None - Infectious Disease History Infectious Disease History: Reports: Chicken Pox, Influenza - Past Surgical History Cardiovascular Surgical History: Reports: Coronary Artery Bypass Other Cardiovascular Surgeries/Procedures: bypass x 5 Musculoskeletal Surgical History: Reports: Arthroscopic Knee, Shoulder Surgery Social & Family History - Family History Family Medical History: No Pertinent Family History HEENT: Reports: Impaired Vision Cardiac: Reports: High Cholesterol, Hypertension Respiratory: Reports: Asthma OBGYN: Reports: Endocrine/Metabolic: Reports: Diabetes, type II Oncologic: Reports: Colon, Lung - Caffeine Use Caffeine Use: Reports: Coffee, Soda Caffeine Use Comment: quit energy drinks after his heart problem ED ROS GENERAL - Review of Systems Review Of Systems: Comprehensive ROS is negative, except as noted in HPI. ED EXAM, GENERAL - Physical Exam Exam: See Below Exam Limited By: No Limitations General Appearance: Alert, No Apparent Distress Eye Exam: Bilateral Eye: PERRL Nose: Normal Inspection, Normal Mucosa, No Blood Throat/Mouth: Normal Inspection, Normal Lips, Normal Teeth, Normal Gums, Normal Oropharynx, Normal Voice, No Airway Compromise Head: Atraumatic, Normocephalic Neck: Normal Inspection, Supple, Non-Tender, Full Range of Motion Respiratory/Chest: No Respiratory Distress, Lungs Clear, Normal Breath Sounds, No Accessory Muscle Use, Chest Non-Tender Cardiovascular: Normal Peripheral Pulses, Regular Rate, Rhythm, No Edema, No Gallop, No JVD, No Murmur, No Rub GI/Abdominal: Normal Bowel Sounds, Soft, Non-Tender, No Organomegaly, No Distention, No Abnormal Bruit, No Mass (Male) Exam: Deferred Back Exam: Normal Inspection, Full Range of Motion, NT Extremities: Normal Inspection, Normal Range of Motion, Non-Tender, Normal Capillary Refill, No Pedal Edema Neurological: Alert, Oriented, CN II-XII Intact, Normal Cognition, Normal Gait, Normal Reflexes, No Motor/Sensory Deficits Psychiatric: Normal Affect, Normal Mood Skin Exam: Warm, Dry, Intact, Normal Color, No Rash #1 Interpretation EKG Date: 06/15/21 Time: 17:19 Rhythm: Other (sinus) Ashley: Normal P-Wave: Present QRS: Normal ST-T: Depressed QT: Normal EKG Interpretation Comments: sinus rhythm diffuse st depression unchanged for previous ekg months ago #2 Interpretation EKG Date: 06/15/21 Time: 19:39 Rhythm: Other (sinus) Ashley: Normal P-Wave: Present QRS: Normal ST-T: Depressed QT: Normal EKG Interpretation Comments: unchanged from prior ekg Course - Vital Signs Last Recorded V/S: Last Vital Signs Temp 97.8 F 06/15/21 17:15 Pulse 96 06/15/21 17:15 Resp 16 06/15/21 17:15 BP 127/100 H 06/15/21 17:15 Pulse Ox 95 06/15/21 17:15 - Orders/Labs/Meds Orders: Active Orders 24 hr Category Date Time Status Peripheral IV Care [RC] . DIRECTED Care 06/15/21 17:24 Active Sodium Chloride 0.9% [Saline Flush] Med 06/15/21 17:23 Active 10 ml FLUSH ASDIRECTED PRN Peripheral IV Insertion Adult [OM.PC] Routine Oth 06/15/21 17:23 Ordered Medication Orders Sodium Chloride (Sodium Chloride 0.9% 10 Ml Syringe) 10 ml FLUSH ASDIRECTED PRN PRN Reason: Keep Vein Open Last Admin: 06/15/21 17:40 Dose: 10 ml Documented by: [id number] Labs: Laboratory Tests 06/15/21 06/15/21 06/15/21 Range/Units 17:31 17:31 17:31 WBC 7.9 (5.0-10.0) 10^3/uL RBC 4.67 (4.6-6.2) 10^6/uL Hgb 14.2 (14.0-18.0) g/dL Hct 41.3 (40.0-54.0) % MCV 88.4 (80-100) fL MCH 30.4 (27.0-34.0) pg MCHC 34.4 (33.0-35.0) g/dL Plt Count 252 (150-450) 10^3/uL Neut % (Auto) 57.9 (42.2-75.2) % Lymph % (Auto) 30.2 (20.5-50.1) % [place] % (Auto) 9.1 H (2-8) % Eos % (Auto) 2.3 (1.0-3.0) % Baso % (Auto) 0.5 (0.0-1.0) % D-Dimer, Quantitative 143 (0-400) ng/mL Sodium 140 (136-145) mmol/L Potassium 4.1 (3.5-5.1) mmol/L Chloride 103 (98-107) mmol/L Carbon Dioxide 26 (21-32) mmol/L Anion Gap 15.1 H (7-13) mEq/L BUN 21 H (7-18) mg/dL Creatinine 1.06 (0.70-1.30) mg/dL Est Cr Clr Drug Dosing TNP Estimated GFR (MDRD) > 60 BUN/Creatinine Ratio 19.8 (No establ ref range) Glucose 181 H (70-99) mg/dL Calcium 8.7 (8.5-10.1) mg/dL Magnesium 2.2 (1.8-2.4) mg/dL Total Bilirubin 0.2 (0.2-1.0) mg/dL AST 24 (15-37) U/L ALT 54 (16-63) U/L Alkaline Phosphatase 103 (46-116) U/L Troponin I High Sens 136 H* (<=76) pg/mL C-Reactive Protein < 0.2 (0.0-0.9) mg/dL B-Natriuretic Peptide 32 (0-100) pg/ml Total Protein 7.2 (6.4-8.2) g/dL Albumin 3.8 (3.4-5.0) g/dL Globulin 3.4 Albumin/Globulin Ratio 1.1 Amylase 43 (25-115) U/L Lipase 107 (73-393) U/L TSH, Ultra Sensitive 1.37 (0.36-3.74) uIU/mL 06/15/21 Range/Units 19:50 WBC (5.0-10.0) 10^3/uL RBC (4.6-6.2) 10^6/uL Hgb (14.0-18.0) g/dL Hct (40.0-54.0) % MCV (80-100) fL MCH (27.0-34.0) pg MCHC (33.0-35.0) g/dL Plt Count (150-450) 10^3/uL Neut % (Auto) (42.2-75.2) % Lymph % (Auto) (20.5-50.1) % [place] % (Auto) (2-8) % Eos % (Auto) (1.0-3.0) % Baso % (Auto) (0.0-1.0) % D-Dimer, Quantitative (0-400) ng/mL Sodium (136-145) mmol/L Potassium (3.5-5.1) mmol/L Chloride (98-107) mmol/L Carbon Dioxide (21-32) mmol/L Anion Gap (7-13) mEq/L BUN (7-18) mg/dL Creatinine (0.70-1.30) mg/dL Est Cr Clr Drug Dosing Estimated GFR (MDRD) BUN/Creatinine Ratio (No establ ref range) Glucose (70-99) mg/dL Calcium (8.5-10.1) mg/dL Magnesium (1.8-2.4) mg/dL Total Bilirubin (0.2-1.0) mg/dL AST (15-37) U/L ALT (16-63) U/L Alkaline Phosphatase (46-116) U/L Troponin I High Sens 181 H* (<=76) pg/mL C-Reactive Protein (0.0-0.9) mg/dL B-Natriuretic Peptide (0-100) pg/ml Total Protein (6.4-8.2) g/dL Albumin (3.4-5.0) g/dL Globulin Albumin/Globulin Ratio Amylase (25-115) U/L Lipase (73-393) U/L TSH, Ultra Sensitive (0.36-3.74) uIU/mL Meds: Medications Generic Name Dose Route Start Last Admin Trade Name Crow PRN Reason Stop Dose Admin Sodium Chloride 10 ml 06/15/21 17:23 06/15/21 17:40 Sodium Chloride 0.9% 10 Ml Syringe FLUSH 10 ml ASDIRECTED PRN Administration Keep Vein Open Discontinued Medications Generic Name Dose Route Start Last Admin Trade Name Freq PRN Reason Stop Dose Admin Aspirin 324 mg 06/15/21 17:37 06/15/21 17:40 Aspirin 81 Mg Tab.Chew PO 06/15/21 17:38 324 mg ONETIME ONE Administration Aspirin Confirm 06/15/21 17:38 Aspirin 81 Mg Tab.Chew Administered 06/15/21 17:39 Dose 324 mg .ROUTE .STK-MED ONE - Re-Assessments/Exams Free Text/Narrative Re-Assessment/Exam: 06/15/21 18:44 I spoke with the pts financial director Dr. Colon at the [facility] who advised to contact him if the repeat troponin is climbing or if the pts condition worsens. He advises if the pt remains stable with no drastic elevation in troponin or development of a Stemi that the pt can go home until his appointment with him on the . 06/15/21 20:29 The repeat troponin is only slightly elevated from the first sample taken today. The pts financial director Dr. Colon stated that if there is no drastic elevation in the troponin to have the pt go home and not exert himself until he can make it to his appointment mid June. At the present the pt is pain free and feels safe to go home. I have instructed him to return to the ER if his symptoms redevelop. Departure - Departure Time of Disposition: 20:32 Disposition: Home, Self-Care 01 Condition: Fair Clinical Impression: Angina pectoris without myocardial infarction Instructions: Angina, [id number] Forms: ED Department Discharge Additional Instructions: RX: Nitro If your symptoms redevelop return to the ER. If any new symptoms or concerns develop return to the ER. Your financial director wants you to rest and not exert yourself. [facility] mid June Sepsis Event Note (ED) - Focused Exam Vital Signs: Vital Signs Temp Pulse Resp BP Pulse Ox 06/15/21 17:15 97.8 F 96 16 127/100 H 95 - My Orders Last 24 Hours: My Active Orders 06/15/21 17:23 Sodium Chloride 0.9% [Saline Flush] 10 ml FLUSH ASDIRECTED PRN Peripheral IV Insertion Adult [OM.PC] Routine 06/15/21 17:24 Peripheral IV Care [RC] . DIRECTED - Assessment/Plan Last 24 Hours: My Active Orders 06/15/21 17:23 Sodium Chloride 0.9% [Saline Flush] 10 ml FLUSH ASDIRECTED PRN Peripheral IV Insertion Adult [OM.PC] Routine 06/15/21 17:24 Peripheral IV Care [RC] . DIRECTED
[2021-06-15] MEDS ORDERED: Aspirin 81 MG Tab.Chew PO ONE (17:37)
[2021-06-15] MEDS ORDERED: Aspirin 81 MG Tab.Chew ONE (17:38)
[2021-06-15 18:08] LABS: ANION GAP 15.1 mEq/L (7-13); CHLORIDE,CL 103 mmol/L (98-107); SODIUM,NA 140 mmol/L (136-145)
--- NOTE | 2021-06-15 18:10 | CR ---
PROCEDURE INFORMATION: Exam: XR Chest Exam date and time: 06/15/2021 5:43 PM Age: 51 years old Clinical indication: Other: Chest pain; Additional info: Cp TECHNIQUE: Imaging protocol: XR of the chest. Views: 1 view. COMPARISON: CR Chest 1V Frontal 04/13/2021 9:34 PM FINDINGS: Tubes, catheters and devices: Median sternotomy sutures. Lungs: Unremarkable. No consolidation. Pleural spaces: Unremarkable. No pleural effusion. No pneumothorax. Heart/Mediastinum: Unremarkable. No cardiomegaly. Bones/joints: Unremarkable. IMPRESSION: Post thoracotomy. No acute findings
[2021-06-15 18:28] VITALS: BP 127/100; PULSE 96
[2021-06-15] MEDS ORDERED: Nitroglycerin 0.4 MG Tab.SL ONE (20:41)
== END 2021-06-15 20:51 | disposition home or self-care (01) ==
LOC: DL.ED 17:13
DX: I20.0 Unstable angina (principal); I25.2 Old myocardial infarction; E11.9 Type 2 diabetes mellitus without complications; I10 Essential (primary) hypertension; Z79.82 Long term (current) use of aspirin; Z79.899 Other long term (current) drug therapy; Z79.02 Long term (current) use of antithrombotics/antiplatelets; Z79.84 Long term (current) use of oral hypoglycemic drugs
CPT/HCPCS: 36415; 71045; 80053; 82150; 83690; 83735; 83880; 84443; 84484; 85025; 85379; 86140; 93005; 99285; A9270